=== PATIENT | male | born 1955 | race Hispanic/Latino ===

== ENCOUNTER 2019-06-05 12:44 | Emergency (ER) | payer OTHER, SELFPAY ==
[2019-06-05 13:00] VITALS: BP 142/81; PULSE 62; RESP 16; TEMP 36.7; O2SAT 99
[2019-06-05 14:02] LABS: Add Manual Diff / Slide Review NO; Basophils Absolute Auto 0 /uL (0-100); Basophils Percent Auto 0.4 % (0-2); Eosinophils Absolute Auto 400 /uL (0-450); Eosinophils Percent Auto 3.6 % (2-4); Hematocrit 32.5 % (41-53); Hemoglobin 10.8 g/dL (13.5-17.5); Lymphocytes Absolute Auto 2100 /uL (1100-4500); Lymphocytes Percent Auto 21.2 % (25-40); Mean Corpuscular HGB Conc 33.3 % (30-36); Mean Corpuscular Hemoglobin 31.2 PG (26-34); Mean Corpuscular Volume 93.6 fL (80-100); Monocytes Absolute Auto 700 /uL (0-900); Monocytes Percent Auto 7.2 % (3-14); Neutrophils Absolute Auto 6600 /uL (1500-7000); Neutrophils Percent Auto 67.6 % (50-75); Platelet Count 198 X10^3/uL (150-400); Red Blood Cell Count 3.48 X10^6/uL (4.5-5.9); Red Cell Distribution Width 14.1 % (11.6-14.8); White Blood Cell Count 9.8 X10^3/uL (4.5-11.0)
--- NOTE | 2019-06-05 14:10 | DI.CT.S_ITS ---
PROCEDURE: CT KIDNEY URETER BLADDER (KUB) INDICATIONS: Right lower quadrant pain and flank pain TECHNIQUE: Noncontrast 5 mm thick sections acquired from the diaphragms to the symphysis. 5 mm thick coronal and sagittal reformats were then performed. For radiation dose reduction, the following was used: automated exposure control, adjustment of mA and/or kV according to patient size. COMPARISON: None. FINDINGS: Image quality: Excellent. Lung bases: There is a small subpleural nodule in the right lower lobe measuring approximately 4 mm. There is minimal dependent atelectasis. The Heart size is normal. Urinary system: No kidney stones or hydronephrosis. There is nonspecific perinephric stranding bilaterally. Both ureters appear non-dilated throughout their expected courses. The urinary bladder is partially distended. No calcified bladder stones. Other solid organs: Noncontrast evaluation of the liver demonstrates no focal hepatic lesions. The gallbladder is surgically absent with a surgical clip in the gallbladder fossa. There is distention of the presumed cystic duct remnant, measuring up to approximately 1.4 cm adjacent to the surgical clip. No associated fat stranding or fluid. Pancreas is normal in contours. Spleen is normal in size. No adrenal nodules. Peritoneum and bowel: Unenhanced bowel loops demonstrate normal wall thickness and caliber. The appendix is normal in appearance. There are a few colonic diverticula without acute diverticulitis. No free fluid or air. Nodes and vessels: No retroperitoneal or mesenteric adenopathy by size criteria. Aorta and inferior vena cava are normal in caliber. Abdominal wall: No ventral hernias. Pelvis: No free pelvic fluid. There is a small fat-containing right inguinal hernia. Bones: No suspicious bony lesions. No vertebral body compression fractures. IMPRESSION: 1. No nephrolithiasis or obstructive uropathy. 2. No evidence of appendicitis. 3. Dilated cystic duct remnant in the gallbladder fossa with surgical clip from presumed cholecystectomy. Dictated Dictated by: Sekou Reyna M.D. on 06/05/2019 at 14:47 Approved by: Sekou Reyna M.D. on 06/05/2019 at 14:53
[2019-06-05 14:11] LABS: Prothrombin Time 11.2 SECONDS (10.1-12.7)
[2019-06-05 14:13] LABS: PTT Partial Thromboplastin Tim 32 SECONDS (26.4-36.2)
--- NOTE | 2019-06-05 14:14 | ED_ITS ---
HPI - Abdominal Pain General Chief Complaint: Abdominal Pain Stated Complaint: lower right back and abdominal pain Time Seen by Provider: 06/05/19 13:58 Source: patient Mode of arrival: ambulatory Limitations: no limitations History of Present Illness HPI narrative: Patient is a 65 year old male who presents with right lower quadrant pain and flank pain ongoing for the last 5 days. It comes and goes. He is nauseous at times. He apparently had HI at [facility] about 9 months ago. They were unable to do any sort of stent. He denies absolutely no chest pain or shortness of breath. Pain today remains in the right lower quadrant. No fevers or chills. MD complaint: abdominal pain and flank pain Location: RLQ Quality: sharp Related Data Home Medications Medication Instructions Recorded Confirmed aspirin 81 mg PO QPM #0 06/21/11 06/05/19 atorvastatin 80 mg PO QPM 06/05/19 06/05/19 cholecalciferol (vitamin D3) 2,000 unit PO DAILY 06/05/19 06/05/19 [Vitamin D3] insulin aspart U-100 [Novolog 8 - 12 units SUBCUT TIDWM 06/05/19 06/05/19 Flexpen U-100 Insulin] insulin glargine [Lantus Solostar 40 units SUBCUT QPM 06/05/19 06/05/19 U-100 Insulin] losartan 50 mg PO QPM 06/05/19 06/05/19 metoprolol tartrate 25 mg PO BID 06/05/19 06/05/19 Allergies Allergy/AdvReac Type Severity Reaction Status Date / Time prednisone Allergy Severe Rash Verified 06/05/19 13:38 Review of Systems Review of Systems GENERAL: Denies chills, fatigue, malaise, fever, sweats, travel HEENT: Denies sinus pain, ear pain, sore throat, difficulty swallowing, neck pain RESPIRATORY: Denies dyspnea, cough, wheezing, hemoptysis, sputum. CARDIOVASCULAR: Denies chest pain, palpitations, orthopnea, edema GASTROINTESTINAL: HPI : Denies dysuria, frequency, incontinence, hematuria, urinary retention, flank pain. MUSCULOSKELETAL: Denies weakness, joint pain, or bony pain SKIN: No rash, no erythema, no pruritus NEUROLOGIC: Denies weakness, dizziness, headache, numbness, change in speech, confusion PSYCHIATRIC: No concerning psychosocial issues. 12 point review of systems is negative except for those stated above and HPI [facility] Medical History Diabetes (Acute) Hyperlipidemia (Acute) Hypertension (Acute) Kidney disease (Acute) Social History Smoking Status: Never smoker Social History Smoking Status: Never smoker Exam Initial Vital Signs Initial Vital Signs: Vital Signs Temperature 98.1 F 06/05/19 13:00 Pulse Rate 62 06/05/19 13:00 Respiratory Rate 16 06/05/19 13:00 Blood Pressure 142/81 H 06/05/19 13:00 Pulse Oximetry 99 06/05/19 13:00 GENERAL: Alert pleasant male and in no acute distress. HEENT: Head atraumatic,EOMI, pupils reactive, CARDIOVASCULAR: Regular rate and rhythm without murmurs, rubs or gallops. RESPIRATORY: Breath sounds equal bilaterally, no wheezes rales or rhonchi. ABDOMEN: Soft, mild right lower quadrant tenderness no guarding no rebound : Mild right CVA tenderness EXTREMITIES: Normal range of motion, no clubbing or edema. Neurovascularly intact NEUROLOGICAL: Alert and oriented x4.Normal gait and speech. Cranial nerves II through XII grossly intact. SKIN: Warm, dry, no laceration, no petechiae, no rashes or lesions. Course Orders Ordered: ED Orders 06/05/19 13:10 Urine Microscopic Stat 06/05/19 13:45 Complete Blood Count AUTO DIFF Stat Comprehensive Metabolic Panel Stat Lipase Stat Partial Thromboplastin Time Stat Prothrombin Time INR Stat 06/05/19 13:51 EKG-12 Lead Stat 06/05/19 14:10 CT kidney ureter bladder (KUB) Stat Vital Signs - 8 hr 06/05/19 13:00 06/05/19 14:31 06/05/19 15:31 Temperature 98.1 F Pulse Rate 62 65 63 Respiratory Rate 16 18 17 Blood Pressure 142/81 H Blood Pressure [Right Arm] 162/87 H 148/85 H Pulse Oximetry 99 91 99 06/05/19 15:32 Temperature Pulse Rate 62 Respiratory Rate 15 Blood Pressure Blood Pressure [Right Arm] 148/85 H Pulse Oximetry 98 MDM - Abdominal Pain Lab Data Attestation: I reviewed the patient's lab results. Result diagrams: 06/05/19 13:45 06/05/19 13:45 Lab Results 06/05/19 06/05/19 06/05/19 Range/Units 13:10 13:45 13:45 WBC 9.8 (4.5-11.0) X10^3/uL RBC 3.48 L (4.5-5.9) X10^6/uL Hgb 10.8 L (13.5-17.5) g/dL Hct 32.5 L (41-53) % MCV 93.6 (80-100) fL MCH 31.2 (26-34) PG MCHC 33.3 (30-36) % RDW 14.1 (11.6-14.8) % Plt Count 198 (150-400) X10^3/uL Neut % (Auto) 67.6 (50-75) % Lymph % (Auto) 21.2 L (25-40) % [place] % (Auto) 7.2 (3-14) % Eos % (Auto) 3.6 (2-4) % Baso % (Auto) 0.4 (0-2) % Neut # (Auto) 6600 (1602-4333) /uL Lymph # (Auto) 2100 (2357-4025) /uL [place] # (Auto) 700 (0-900) /uL Eos # (Auto) 400 (0-450) /uL Baso # (Auto) 0 (0-100) /uL PT 11.2 (10.1-12.7) SECONDS INR 1.0 (0.9-1.3) APTT 32 (26.4-36.2) SECONDS Sodium (137-145) mmol/L Potassium (3.4-5.1) mmol/L Chloride (98-107) mmol/L Carbon Dioxide (22-32) mmol/L BUN (9-20) mg/dL Creatinine (0.66-1.25) mg/dL Estimated GFR (>60) mL/min BUN/Creatinine Ratio (6-22) Glucose (80-110) mg/dL Calcium (8.4-10.2) mg/dL Total Bilirubin (0.2-1.3) mg/dL AST (17-59) IU/L ALT (21-72) IU/L Alkaline Phosphatase (38-126) U/L Total Protein (6.3-8.2) g/dL Albumin (3.5-5.0) g/dL Globulin (1.7-4.1) g/dL Albumin/Globulin Ratio (1.0-2.8) Lipase (23-300) U/L Urine RBC 0-1/hpf (0-5/HPF) Urine WBC 0-1/hpf (0-5/HPF) Urine Bacteria Few (2-10) H (None) Ur Culture Indicated? Cult not indicated 06/05/19 Range/Units 13:45 WBC (4.5-11.0) X10^3/uL RBC (4.5-5.9) X10^6/uL Hgb (13.5-17.5) g/dL Hct (41-53) % MCV (80-100) fL MCH (26-34) PG MCHC (30-36) % RDW (11.6-14.8) % Plt Count (150-400) X10^3/uL Neut % (Auto) (50-75) % Lymph % (Auto) (25-40) % [place] % (Auto) (3-14) % Eos % (Auto) (2-4) % Baso % (Auto) (0-2) % Neut # (Auto) (6806-8660) /uL Lymph # (Auto) (2869-4097) /uL [place] # (Auto) (0-900) /uL Eos # (Auto) (0-450) /uL Baso # (Auto) (0-100) /uL PT (10.1-12.7) SECONDS INR (0.9-1.3) APTT (26.4-36.2) SECONDS Sodium 140 (137-145) mmol/L Potassium 5.0 (3.4-5.1) mmol/L Chloride 110 H (98-107) mmol/L Carbon Dioxide 20 L (22-32) mmol/L BUN 57 H (9-20) mg/dL Creatinine 3.70 H (0.66-1.25) mg/dL Estimated GFR 16.7 L (>60) mL/min BUN/Creatinine Ratio 15.4 (6-22) Glucose 87 (80-110) mg/dL Calcium 9.0 (8.4-10.2) mg/dL Total Bilirubin 0.4 (0.2-1.3) mg/dL AST 25 (17-59) IU/L ALT 23 (21-72) IU/L Alkaline Phosphatase 114 (38-126) U/L Total Protein 6.6 (6.3-8.2) g/dL Albumin 3.5 (3.5-5.0) g/dL Globulin 3.1 (1.7-4.1) g/dL Albumin/Globulin Ratio 1.1 (1.0-2.8) Lipase 75 (23-300) U/L Urine RBC (0-5/HPF) Urine WBC (0-5/HPF) Urine Bacteria (None) Ur Culture Indicated? Point of care testing: Urine Dip Bedside Urine Glucose Negative Bedside Urine Bilirubin - Negative Bedside Urine Ketone - Negative Urine Specific [place] 1.025 Bedside Urine Occult Blood +/- Bedside Urine pH 5.5 Bedside Urine Protein +++ 300 Bedside Urine Urobilinogen - Negative Bedside Urine Nitrite - Negative Bedside Urine Leukocytes - Negative Esterase Imaging Data CT scan - abdomen: Radiologist's impression: PROCEDURE: CT KIDNEY URETER BLADDER (KUB) INDICATIONS: Right lower quadrant pain and flank pain TECHNIQUE: Noncontrast 5 mm thick sections acquired from the diaphragms to the symphysis. 5 mm thick coronal and sagittal reformats were then performed. For radiation dose reduction, the following was used: automated exposure control, adjustment of mA and/or kV according to patient size. COMPARISON: None. FINDINGS: Image quality: Excellent. Lung bases: There is a small subpleural nodule in the right lower lobe measuring approximately 4 mm. There is minimal dependent atelectasis. The Heart size is normal. Urinary system: No kidney stones or hydronephrosis. There is nonspecific perinephric stranding bilaterally. Both ureters appear non-dilated throughout their expected courses. The urinary bladder is partially distended. No calcified bladder stones. Other solid organs: Noncontrast evaluation of the liver demonstrates no focal hepatic lesions. The gallbladder is surgically absent with a surgical clip in the gallbladder fossa. There is distention of the presumed cystic duct remnant, measuring up to approximately 1.4 cm adjacent to the surgical clip. No associated fat stranding or fluid. Pancreas is normal in contours. Spleen is normal in size. No adrenal nodules. Peritoneum and bowel: Unenhanced bowel loops demonstrate normal wall thickness and caliber. The appendix is normal in appearance. There are a few colonic diverticula without acute diverticulitis. No free fluid or air. Nodes and vessels: No retroperitoneal or mesenteric adenopathy by size criteria. Aorta and inferior vena cava are normal in caliber. Abdominal wall: No ventral hernias. Pelvis: No free pelvic fluid. There is a small fat-containing right inguinal hernia. Bones: No suspicious bony lesions. No vertebral body compression fractures. IMPRESSION: 1. No nephrolithiasis or obstructive uropathy. 2. No evidence of appendicitis. 3. Dilated cystic duct remnant in the gallbladder fossa with surgical clip from presumed cholecystectomy. Dictated Dictated by: Sekou Reyna M.D. on 06/05/2019 at 14:47 ECG Data Attestation: I personally reviewed and interpreted this ECG as follows: Prior ECG tracings: available for review Interpretation: Normal sinus rhythm rate 61 p.r. interval 142 to are S1 0 9. T- wave inversions noted as in lateral leads lead 1 aVL [address] V6. No ST elevations or depressions. Previous EKGs from 2010. He states that he has had an HI in the last I do not have EKG from that. MDM Narrative Medical decision making narrative: No sign of appendicitis or kidney stone. Blood work reassuring. Patient has no signs or symptoms of chest pain or cardiac issues today. Pain seems to be in his lower abdomen. EKG is likely old changes. Discharge Plan Departure Patient Disposition: Home Clinical Impression: Abdominal pain Qualifiers: Abdominal location: left lower quadrant Qualified Code(s): R10.32 - Left lower quadrant pain Discharge Date/Time: 06/05/19 15:33 Interventions: ED Discharge Assessment Last Done: 06/05/19 15:32 Instructions: Acute Abdominal Pain Activity Restrictions/Additional Instructions: *You have been diagnosed with abdominal pain *What to do: At this time there is no sign of kidney stone or acute appendicitis or infection. *Continue to take medications as directed *Follow up with your primary care provider in 2-3 days *Return to ER if you should have increasing pain of persistent vomiting or any new, worsening or concerning symptoms Prescriptions: No Action aspirin 81 mg Tablet,Delayed Release (Dr/Ec) 81 mg PO QPM Qty: 0 RF: 0 losartan 50 mg tablet 50 mg PO QPM RF: 0 metoprolol tartrate 25 mg tablet 25 mg PO BID RF: 0 atorvastatin 80 mg Tablet 80 mg PO QPM RF: 0 Novolog Flexpen U-100 Insulin 100 unit/mL (3 mL) Insulin Pen 8 - 12 units subcut TIDWM RF: 0 Lantus Solostar U-100 Insulin 100 unit/mL (3 mL) insulin pen 40 units subcut QPM RF: 0 cholecalciferol (vitamin D3) [Vitamin D3] 2,000 unit Capsule 2,000 unit PO DAILY RF: 0
[2019-06-05 14:20] LABS: Bacteria Urine Few (2-10); Culture Indicated Urine Cult Not Indicated; RBC Urine 0-1/HPF (0-5/HPF); WBC Urine 0-1/HPF (0-5/HPF)
[2019-06-05 14:24] LABS: Alanine Aminotransferase 23 IU/L (21-72); Albumin 3.5 g/dL (3.5-5.0); Albumin Globulin Ratio 1.1 (1.0-2.8); Alkaline Phosphatase 114 U/L (38-126); Aspartate Aminotransferase 25 IU/L (17-59); BUN Creatinine Ratio 15.4 (6-22); Bilirubin Total 0.4 mg/dL (0.2-1.3); Blood Urea Nitrogen 57 mg/dL (9-20); Carbon Dioxide 20 mmol/L (22-32); Chloride 110 mmol/L (98-107); Estimated Glomerular Filt Rate 16.7 mL/min (>60); Globulin 3.1 g/dL (1.7-4.1); Glucose 87 mg/dL (80-110); HEMOLYSIS < 15 (0-50); Lipase 75 U/L (23-300); Sodium 140 mmol/L (137-145); Total Protein 6.6 g/dL (6.3-8.2)
[2019-06-05 14:31] VITALS: BP 162/87; PULSE 65; RESP 18; O2SAT 91
[2019-06-05 15:31] VITALS: BP 148/85; PULSE 63; RESP 17; O2SAT 99
[2019-06-05 15:32] VITALS: BP 148/85; PULSE 62; RESP 15; O2SAT 98
== END 2019-06-05 15:33 | disposition home or self-care (01) ==
PROVIDERS: Emergency Provider Emergency Medicine
DX: R10.32 Left lower quadrant pain (principal)
CPT/HCPCS: 36591; 74176; 80053; 81003; 81015; 83690; 85025; 85610; 85730; 93005; 99283; 99285